=== PATIENT | male | born 1950 | race Caucasian/White ===

== ENCOUNTER 2023-12-30 16:50 | Emergency (ER) | payer OTHER, MEDICARE ==
[~2023-12-30] VITALS: Ht 165.1 cm; Wt 90.7 kg
[~2023-12-30 16:50] MED LIST: ALBU6.7H14 IH; LEVO-70 PO; PRED20TA3 PO
[2023-12-30 17:11] LABS: HEMATOCRIT 39.2 % (42-54); MEAN CORPUSCULAR HEMOGLOBIN 31.8 pg (27.0-33.0); MEAN CORPUSCULAR HGB CONC 34.2 g/dL (32.0-36.0); MEAN CORPUSCULAR VOLUME 92.9 fL (79-99); RED BLOOD CELL COUNT(AUTO) 4.22 MIL/uL (4.50-6.20); RED CELL DISTRIBUTION WIDTH 12.6 % (11.0-15.5); WHITE BLOOD COUNT (AUTO) 8.2 K/uL (4.8-10.8)
[2023-12-30 17:22] LABS: CREATININE 1.2 mg/dL (0.5-1.5); POTASSIUM 3.6 mmol/L (3.5-5.1)
[2023-12-30 17:27] LABS: ALBUMIN 4.2 g/dL (3.5-5.0); BILIRUBIN,TOTAL 0.3 mg/dL (0.2-1.0); TOTAL PROTEIN, SERUM 8.1 g/dL (6.0-8.3)
[2023-12-30] MEDS: NITROGLYCERIN 1GM OINT 1 INCH/1GM TD ONE (17:47)
[2023-12-30] MEDS ORDERED: LOSA25TA41 PO (18:19)
[2023-12-30] MEDS ORDERED: NAPR500T6 PO (18:19)
[2023-12-30] MEDS: LOSARTAN 25 MG TABLET PO ONE (18:32)
[2023-12-30] MEDS: KETOROLAC 30MG VIAL (30MG/ML) IM ONE (18:33)
[2023-12-30 18:36] VITALS: BP 153/85; PULSE 82; RESP 18; O2SAT 96
== END 2023-12-30 19:04 | disposition home or self-care (01) ==
LOC: EDH 16:50
DX: R51.9 Headache, unspecified (principal); I10 Essential (primary) hypertension; E78.00 Pure hypercholesterolemia, unspecified; K21.9 Gastro-esophageal reflux disease without esophagitis; Z79.899 Other long term (current) drug therapy; Z98.890 Other specified postprocedural states
CPT/HCPCS: 99285; 70450; 71045; 84484; 80053; 85027; 36415; 96372; 93005; J1885